=== PATIENT | female | born 1980 | race African-American/Black ===

== ENCOUNTER 2018-11-16 19:13 | Inpatient (IN) | payer MEDICAID ==
[~2018-11-16] VITALS: Ht 170.2 cm; Wt 52.2 kg
[2018-11-16 23:48] LABS: BASOPHILS % 0.2 % (0.0-2.0); HEMATOCRIT. 42.5 % (36.0-48.0); HEMOGLOBIN. 13.8 g/dL (12.0-16.0); LYMPHOCYTES % 58.7 % (20.0-50.0); MEAN CORPUSCULAR VOLUME 70.6 fL (81.0-99.0); MONOCYTES % 9.5 % (2.0-8.0); NEUTROPHILS % 31.6 % (40.0-76.0); PLATELET 139 x1000/uL (130-400); RED BLOOD CELL COUNT 6.02 mill/uL (4.2-5.4); RED CELL DISTRIBUTION WIDTH 14.1 % (11.6-14.6)
[2018-11-16 23:59] LABS: CHLORIDE 101 mEq/L (98-107)
[2018-11-17] MEDS ORDERED: SODIUM CHLORIDE 0.9% 1,000 ML IV ONE (01:46)
[2018-11-17] MEDS ORDERED: ACETAMINOPHEN 325MG TABLET PO PRN (03:00)
[2018-11-17] MEDS ORDERED: ONDANSETRON HCL 4MG/2ML INJ IV PRN (03:00)
[2018-11-17] MEDS ORDERED: GUAIFENESIN 200MG/10ML SUGAR FREE UDC PO PRN (03:00)
[2018-11-17] MEDS ORDERED: AZITHROMYCIN 500 MG in DEXT 5% WATER 250 ML IV NR (03:00)
[2018-11-17] MEDS ORDERED: DIPHENHYDRAMINE 50MG/ML VIAL IV PRN (03:00)
[2018-11-17] MEDS ORDERED: IPRATROPIUM/ALBUTEROL 0.5-3(2.5)MG/3ML NEB INH PRN (03:00)
[2018-11-17] MEDS ORDERED: CEFTRIAXONE 1 G PREMIX 50 ML IV NR (04:00)
[2018-11-17] MEDS ORDERED: IOHEXOL-350 100 ML BOTTLE ONE (04:22)
[2018-11-17 08:00] VITALS: BP_SYST 116; BP_SYST 120; BP_DIAS 55; BP_DIAS 61
[2018-11-17] MEDS ORDERED: DEXT 5%/0.45% NACL 1000ML 1,000 ML IV ONE (08:00)
[2018-11-17] MEDS ORDERED: SUCRALFATE 1 G/10 ML UDC PO SCH (08:00)
[2018-11-17] MEDS ORDERED: OMEPRAZOLE 20MG CAPSULE EXTENDED RELEASE PO SCH (08:00)
[2018-11-17] MEDS ORDERED: LEVOFLOXACIN 500MG PREMIX 100 ML IV SCH (09:00)
[2018-11-17] MEDS ORDERED: METHIMAZOLE 5MG TABLET PO SCH (09:00)
[2018-11-17] MEDS ORDERED: PROPRANOLOL HCL 10MG TABLET PO SCH (09:00)
[2018-11-17 11:21] VITALS: BP 118/71
== END 2018-11-17 11:40 | disposition home or self-care (01) | DRG 243 ==
LOC: ER 19:13 → 6WST 11-17 02:39 → EDBEDREQTM 11-17 02:42 → EDBEDREQ 11-17 02:42 → ENRESERV 11-17 05:31
PROVIDERS: ADMIT Internal Medicine; ATTEND Internal Medicine
DX: K22.10 Ulcer of esophagus without bleeding (principal); E05.90 Thyrotoxicosis, unspecified without thyrotoxic crisis or storm; R07.89 Other chest pain; T50.905A Adverse effect of unspecified drugs, medicaments and biological substances, initial encounter; Z98.891 History of uterine scar from previous surgery; Z80.9 Family history of malignant neoplasm, unspecified; Z83.3 Family history of diabetes mellitus; Y92.89 Other specified places as the place of occurrence of the external cause
CPT/HCPCS: 36415; 71045; 71275; 83880; 84439; 84443; 84484; 85379; 93005; 96365; 96368; 99285; J0456; J0696; J1956; J7030; J7060; Q9967